=== PATIENT | female | born 1965 | race Caucasian/White ===

== ENCOUNTER 2016-07-30 13:30 | Emergency (ER) | payer OTHER ==
[2016-07-30 14:37] VITALS: BP 143/93; PULSE 82; RESP 16; TEMP 98.1; O2SAT 95
--- NOTE | 2016-07-30 15:22 | EDPHY ---
H & P Chief Complaint Nursing Narrative: Sat fell on ice and hurt left arm .pain in fa and distal and proximal radius . with suppination of hand. cms intact distal to injury. Time Seen by Provider: 07/30/16 15:14 Source: Patient Exam Limitations: No limitations - Personal History LMP (Females 10-55): Post Menopausal - Medical/Surgical History Hx Asthma: No Hx Chronic Respiratory Disease: No Hx Diabetes: No Hx Cardiac Disease: No Hx Renal Disease: No Hx Cirrhosis: No Hx Alcoholism: No Other PMH: PCP Chika Schaefer. Htn ,osteoporosis,. Surg: Tonsilsectomy ovary remove.d jaw surg. Tetanus UTD. Flu vaccination NONE - Family History Significant Family History: No pertinent family hx - Social History Smoking Status: Never smoked Alcohol Use: Sober Drug Use: None Constitutional: Initial Vital Signs Temperature (C) 36.7 C 07/30/16 14:29 Heart Rate 82 07/30/16 14:29 Respiratory Rate 16 07/30/16 14:29 Blood Pressure 143/93 H 07/30/16 14:29 O2 Sat (%) 95 07/30/16 14:29 O2 Delivery Mode Room Air Allergies/Adverse Reactions: latex Allergy (Verified 07/30/16 14:36) Home Medications: Medication Instructions Recorded Lisinopril 07/30/16 Mobic 15 mg 07/30/16
--- NOTE | 2016-07-30 15:36 | UCPHY ---
H & P Patient Type: New Chief Complaint Nursing Narrative: Sat fell on ice and hurt left arm .pain in fa and distal and proximal radius . with suppination of hand. cms intact distal to injury. Time Seen by Provider: 07/30/16 15:14 HPI/ROS: CHIEF COMPLAINT: Left forearm pain HISTORY OF PRESENT ILLNESS: The patient is a 51-year-old female who is complaining of bruising and swelling and pain to her left forearm and wrist. She states that she slipped on the ice 3 days ago on Saturday and fell onto her buttocks and left arm. Initially her buttocks was the primary source of pain with that is now resolved. However her left arm has become increasingly bruised and painful and now the pain seems to radiate to her left wrist as well. No deformities. She is able to move her arm in directions with minimal pain. Normal sensation and pulses. REVIEW OF SYSTEMS: Constitutional: denies: chills, fever, recent illness, recent injury EENTM: denies: blurred vision, double vision, nose congestion Respiratory: denies: cough, shortness of breath Cardiac: denies: chest pain, irregular heart rate, lightheadedness, palpitations Gastrointestinal/Abdominal: denies: abdominal pain, diarrhea, nausea, vomiting, blood streaked stools Genitourinary: denies: dysuria, frequency, hematuria, pain Musculoskeletal: See HPI Skin: denies: lesions, rash, jaundice, bruising Neurological: denies: headache, numbness, paresthesia, tingling, dizziness, weakness Hematologic/Lymphatic: denies: blood clots, easy bleeding, easy bruising Immunologic/allergic: denies: HIV/AIDS, transplant EXAM: GENERAL: Well-appearing, well-nourished and in no acute distress. HEAD: Atraumatic, normocephalic. EYES: Pupils equal round and reactive to light, extraocular movements intact, sclera anicteric, conjunctiva are normal. ENT: TMs normal, nares patent, oropharynx clear without exudates. Moist mucous membranes. NECK: Normal range of motion, supple without lymphadenopathy or JVD. LUNGS: Breath sounds clear to auscultation bilaterally and equal. No wheezes rales or rhonchi. HEART: Regular rate and rhythm without murmurs, rubs or gallops. ABDOMEN: Soft, nontender, normoactive bowel sounds. No guarding, no rebound. No masses appreciated. BACK: No CVA tenderness, no spinal tenderness, step-offs or deformities EXTREMITIES: 4 x 6 cm contusion to left forearm on ulnar aspect. Minimal tenderness to palpation. Mild pain to the wrist not worsened by range of motion or palpation. No visible deformity. Pulses intact, sensation intact, good capillary refill. Normal range of motion of elbow without pain. NEUROLOGICAL: Cranial nerves II through XII grossly intact. Normal speech, normal gait. 5/5 strength, normal movement in all extremities, normal sensation PSYCH: Normal mood, normal affect. SKIN: Warm, dry, normal turgor, no visible rashes or lesions. Source: Patient Exam Limitations: No limitations - Personal History LMP (Females 10-55): Post Menopausal - Medical/Surgical History Hx Asthma: No Hx Chronic Respiratory Disease: No Hx Diabetes: No Hx Cardiac Disease: No Hx Renal Disease: No Hx Cirrhosis: No Hx Alcoholism: No Other PMH: PCP G Hirones. Htn ,osteoporosis,. Surg: Tonsilsectomy ovary remove.d jaw surg. Tetanus UTD. Flu vaccination NONE - Family History Significant Family History: Hypertension - Social History Smoking Status: Never smoked Alcohol Use: None Drug Use: None Constitutional: Initial Vital Signs Temperature (C) 36.7 C 07/30/16 14:29 Heart Rate 82 07/30/16 14:29 Respiratory Rate 16 07/30/16 14:29 Blood Pressure 143/93 H 07/30/16 14:29 O2 Sat (%) 95 07/30/16 14:29 O2 Delivery Mode Room Air Allergies/Adverse Reactions: latex Allergy (Verified 07/30/16 14:36) Home Medications: Medication Instructions Recorded Hydrocodone/APAP 5/325 [Rake 1 - 2 tab PO Q4H PRN #20 tab 07/30/16 5/325 (RX)] Lisinopril 07/30/16 Mobic 15 mg 07/30/16 Medical Decision Making - Diagnostics Imaging: X-ray: Arm x-ray was obtained. I viewed the images myself on the PACS system. My interpretation of the images is: negative for acute disease . The radiologist interpretation is pending. ED Course/Re-evaluation: We discussed the patient's x-ray results. She is relieved. I suspect that her hematospermia compressing her muscles are causing pain. We discussed elevation and ice and rest and mobilization. She is happy with this plan and declines further workup or testing at this time. Additional verbal discharge instructions given. Indications for returning discussed. Differential Diagnosis: Partial list of the Differential diagnosis considered include but were not limited to; contusion, neuropathy, fracture, sprain and although unlikely based on the history and physical exam, I also considered non accidental trauma , infection. I discussed these differential diagnoses and the plan with the patient as well as the usual and expected course. The patient understands that the diagnosis is provisional and that in medicine we are not always correct and that further workup is often warranted. Usual and customary warnings were given. All of the patient's questions were answered. The patient was instructed to return to the emergency department should the symptoms at all worsen or return, otherwise to followup with the physician as we discussed. Departure - Departure Disposition: Home, Routine, Self-Care Clinical Impression: Arm pain, left Condition: Fair Instructions: Contusion in Adults (ED) Referrals: ROCHELLE QUEVEDO [Primary Care Provider] - As per Instructions Prescriptions: Hydrocodone/APAP 5/325 [Rake 5/325 (RX)] 1 - 2 tab PO Q4H PRN #20 tab PRN Reason: Pain, Moderate - PQRS PQRS Measurement: Not applicable
--- NOTE | 2016-07-30 15:50 | DX ---
Left forearm 2 views History: Fell hiking 2 days ago, pain. Comparison: None available. Findings: No fracture is identified. Alignment is normal. Bone mineralization is normal. There is no significant degenerative change. There is no elbow effusion. Impression: No acute osseous findings.
== END 2016-07-30 15:55 | disposition home or self-care (01) ==
LOC: CED 13:30
DX: S50.12XA Contusion of left forearm, initial encounter (principal); W00.0XXA Fall on same level due to ice and snow, initial encounter
CPT/HCPCS: 73090-PO; 99204-PO; G0463-PO